=== PATIENT | female | born 1960 | race African-American/Black ===

== ENCOUNTER 2024-06-18 13:16 | Outpatient (CLI) | payer OTHER | END 2024-06-18 13:17 | disposition home or self-care (01) | LOC: BICMAMMO 13:16 | PROVIDERS: ATTEND Nurse Practitioner Family | DX: Z12.31 Encounter for screening mammogram for malignant neoplasm of breast (principal); Z91.89 Other specified personal risk factors, not elsewhere classified | CPT/HCPCS: 77063; 77067 ==